=== PATIENT | female | born 1945 | race Caucasian/White ===

== ENCOUNTER 2016-08-10 22:40 | Emergency (ER) | payer MEDICARE, MEDICAID ==
[~2016-08-10 22:40] MED LIST: ASPI-495 PO; BENA40TA67 PO; CELE200C PO; CLON0.2T PO; CLOP75TA2 PO; DULO60CA45 PO; EZET10TA PO; GLIM4TAB PO; MECL-102 PO; MEMA10TA PO; METF1000 PO; OLME40TA3 PO; OMEG1CAP55 PO; PANT40TA2 PO; SITA100T PO; ZOLP10TA2 PO
--- NOTE | 2016-08-10 22:45 | NUR ---
PT BIB [facility] WITH A C/O DIZZINESS X 2 WEEKS. PT'S FAMILY MEMBER ARRIVED WITH THE PT AND STATED THAT THE PT WAS FEELING VERY DIZZY 1 HR ENROLLMENT ELIGIBILITY REPRESENTATIVE. PT HAS BEEN C/O RINGING IN THE LEFT EAR TODAY. PT IS AA&O X 4. PT IS WELSH SPEAKING ONLY.
--- NOTE | 2016-08-10 22:54 | NUR ---
[facility] ARRIVED AND IS TRANSLATING FOR DR. BROWNING.
[2016-08-10] MEDS ORDERED: INSU3INS6 SQ (23:13)
[2016-08-10] MEDS ORDERED: NEBI10TA2 PO (23:13)
[2016-08-10] MEDS ORDERED: CHOL20004 PO (23:13)
[2016-08-10] MEDS ORDERED: AMLO1TAB65 PO (23:13)
[2016-08-10] MEDS ORDERED: ATOR20TA PO (23:13)
[2016-08-10] MEDS ORDERED: SITA1TAB6 PO (23:13)
[2016-08-10] MEDS ORDERED: GABA-534 PO (23:13)
[2016-08-10] MEDS ORDERED: OMEG-72 PO (23:13)
[2016-08-10] MEDS ORDERED: FLUT1DIS5 IH (23:13)
--- NOTE | 2016-08-10 23:15 | NUR ---
PT'S SON ARRIVED AND IS AT THE BEDSIDE.
--- NOTE | 2016-08-11 00:01 | NUR ---
PT APPEARS TO BE RESTING COMFORTABLY WITH NO S/S OF PAIN OR DISTRESS.
[2016-08-11 00:38] VITALS: BP 127/69
== END 2016-08-11 00:39 | disposition home or self-care (01) ==
LOC: ER 22:43
DX: I10 Essential (primary) hypertension (principal); R42 Dizziness and giddiness; E11.9 Type 2 diabetes mellitus without complications; Z79.4 Long term (current) use of insulin; Z79.82 Long term (current) use of aspirin; F03.90 Unspecified dementia, unspecified severity, without behavioral disturbance, psychotic disturbance, mood disturbance, and anxiety

== ENCOUNTER 2017-01-29 21:42 | Emergency (ER) | payer MEDICARE, OTHER ==
[~2017-01-29] VITALS: Ht 162.6 cm; Wt 63.5 kg
[~2017-01-29 21:42] MED LIST changes: +AMLO1TAB65 PO; +ATOR20TA PO; +CHOL20004 PO; +FLUT1DIS5 IH; +GABA-534 PO; +INSU3INS6 SQ; +NEBI10TA2 PO; +OMEG-72 PO; +SITA1TAB6 PO
--- NOTE | 2017-01-29 21:45 | NUR ---
PT BIB [facility] TO ER BED 6, PT C/O FLU LIKE S/S WITH NAUSEA AND VOMITING AT HOME. 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 VSS/RESP EVEN UNLABORED/NAD NOTED/SKIN WARM AND DRY/AOX4. AWAITING MD PINEDA.
[2017-01-29] MEDS ORDERED: IV NS 0.9% 500 ML BAG IV ONE (22:30)
--- NOTE | 2017-01-29 22:30 | NUR ---
20G IV TO L HAND, BLOOD SAMPLE HANDED OVER TO LAB AT BEDSIDE. IV FLUSHES EASILY WITH NS.
[2017-01-29 22:31] LABS: BASOPHILS # (AUTO) 0.1 /CMM (0.0-0.2); BASOPHILS % (AUTO) 0.8 % (0.0-2.0); EOSINOPHILS # (AUTO) 0.2 /CMM (0.0-0.7); EOSINOPHILS % (AUTO) 2.7 % (0.0-6.0); HEMATOCRIT 37 % (33-45); HEMOGLOBIN 12.7 g/dL (11.5-14.8); LYMPHOCYTES # (AUTO) 2.1 /CMM (0.8-4.8); LYMPHOCYTES % (AUTO) 29.7 % (20.0-44.0); MEAN CORPUSCULAR HEMOGLOBIN 30 PG (26.0-33.0); MEAN CORPUSCULAR HGB CONC 34 g/dl (31.0-36.0); MEAN CORPUSCULAR VOLUME 87 fL (82-100); MONOCYTES # (AUTO) 0.4 /CMM (0.1-1.30); MONOCYTES % (AUTO) 6.1 % (2.0-12.0); NEUTROPHILS # (AUTO) 4.2 /CMM (1.8-8.9); NEUTROPHILS % (AUTO) 60.7 % (43.0-81.0); PLATELET COUNT (AUTO) 277 /CMM (150-450); RDW COEFFICIENT OF VARIATION 12.7 (11.5-15.0); RED BLOOD CELL COUNT(AUTO) 4.28 MIL/uL (4.0-5.2); WHITE BLOOD COUNT (AUTO) 6.9 K/uL (4.3-11.0)
[2017-01-29 22:42] LABS: CALCIUM, SERUM 9.4 mg/dL (8.5-10.1); CARBON DIOXIDE 28 mmol/L (21-32); CHLORIDE 100 mmol/L (98-107); GLUCOSE 294 mg/dL (74-106); POTASSIUM 3.6 mmol/L (3.5-5.1); SODIUM SERUM 136 mmol/L (136-145); UREA NITROGEN, BLOOD 28 mg/dL (7-18)
[2017-01-29 22:46] LABS: INR 0.92 (0.87-1.13); PROTHROMBIN TIME 9.6 SECS (9.5-12.7)
[2017-01-29 22:50] LABS: TROPONIN I < 0.017 ng/mL (0.00-0.056)
--- NOTE | 2017-01-29 22:56 | NUR ---
XRAY AT BEDSIDE
--- NOTE | 2017-01-29 23:08 | NUR ---
AT BEDSIDE SPEAKING WITH PT.
--- NOTE | 2017-01-29 23:15 | NUR ---
URINE SPECIMEN OBTAINED AND SENT TO LAB.
[2017-01-29 23:28] LABS: APPEARANCE,URINE CLEAR (CLEAR); BILIRUBIN,URINE NEGATIVE (NEGATIVE); BLOOD, URINE NEGATIVE Ery/uL (NEGATIVE); COLOR,URINE YELLOW (YELLOW); KETONES,URINE NEGATIVE (NEGATIVE); LEUKOCYTE ESTERASE ,URINE NEGATIVE (NEGATIVE); NITRITE, URINE NEGATIVE (NEGATIVE); PROTEIN,URINE NEGATIVE (NEGATIVE); UGLUCOSE 2+ mg/dL (NEGATIVE); UROBILINOGEN,URINE 0.2 EU/dL (0.2)
[2017-01-29 23:31] LABS: BACTERIA,URINE None seen /HPF (None Seen); RBC,URINE NONE SEEN /HPF (0-2); SQUAMOUS EPITHELIAL CELL,UR Few /HPF (None Seen); WBC,URINE 0-2 /HPF (0-3)
--- NOTE | 2017-01-29 23:47 | NUR ---
IV removed. Catheter intact and site benign. Pressure and 4x4 applied to site. No bleeding noted. Patient discharged to home in stable condition. Written and verbal after care instructions given. Patient verbalizes understanding of instruction. Pt ambulatory with a steady gait.
[2017-01-29 23:48] VITALS: BP 150/77
== END 2017-01-29 23:49 | disposition home or self-care (01) ==
LOC: ER 21:46
DX: J06.9 Acute upper respiratory infection, unspecified (principal); E86.0 Dehydration; I10 Essential (primary) hypertension; E11.9 Type 2 diabetes mellitus without complications; F03.90 Unspecified dementia, unspecified severity, without behavioral disturbance, psychotic disturbance, mood disturbance, and anxiety; Z79.4 Long term (current) use of insulin; Z79.82 Long term (current) use of aspirin
CPT/HCPCS: 36415; 71010; 80048; 81001; 84484; 85025; 85730; 87804; 93005; 99285; A4606; J7040; 81000-TC; 87400; Z7610